=== PATIENT | male | born 1950 | race Caucasian/White ===

== ENCOUNTER 2017-06-16 07:27 | Inpatient (IN) | payer OTHER ==
[~2017-06-16] VITALS: Ht 193 cm; Wt 100.4 kg
[2017-06-16 08:07] LABS: EOSINOPHIL (%) 0.4 % (0-5); HEMATOCRIT 33.4 % (38.0-50.0); IMMATURE GRANULOCYTE (%) 0.5 % (0.0-0.7); IMMATURE GRANULOCYTE COUNT 0.1 K/uL; INSTRUMENT ABS NEUTROPHIL CT 8.6 K/uL; LYMPHOCYTE COUNT 0.9 K/uL (1.0-2.8); MCH 30.6 PG (29.0-34.0); MCHC 33.5 G/DL (30.0-36.0); MCV 91.3 FL (86-99); MEAN PLAT.VOLUME 9.7 uM^3 (9.0-12.4); MONOCYTE (%) 8.9 % (3-12); MONOCYTE COUNT 0.9 K/uL (0-0.8); NEUTROPHIL (%) 81.8 % (45-76); NEUTROPHIL COUNT 8.6 K/uL (1.8-6.4); PLATELET COUNT 152 K/uL (156-360); RBC DIS.WIDTH-SD 42.9 % (39-53); RED BLOOD COUNT 3.66 M/uL (4.00-5.50); WHITE BLOOD COUNT 10.5 K/uL (4.1-10.2)
[2017-06-16 08:13] LABS: INTER. NORMALIZED RATIO 1.2; PROTHROMBIN TIME 13.1 SEC (10.2-12.9)
[2017-06-16 08:15] LABS: PTT 29.9 SEC (25-37)
[2017-06-16 08:20] LABS: CHLORIDE 103 mEq/L (99-109); POTASSIUM 4.2 mEq/L (3.7-5.4); SODIUM 134 mEq/L (136-147)
[2017-06-16 08:22] LABS: GLUCOSE 188 mg/dL (70-99)
[2017-06-16 08:24] LABS: ANION GAP 7 MEQ/L (2-14)
[2017-06-16 08:26] LABS: GFR ESTIMATE (CALCULATED) > 59 mL/min/
[2017-06-16 08:27] LABS: UREA NITROGEN (BUN) 13 mg/dL (9-23)
[2017-06-16 08:37] LABS: TROP-I INTERPRETATION NEGATIVE; TROPONIN-I < 0.01 ng/mL (0.0-0.30)
[2017-06-16] MEDS ORDERED: LABETALOL HCL100 MG PO (12:14)
[2017-06-16] MEDS ORDERED: GLUCOPHAGE1000 MG PO (12:15)
[2017-06-16] MEDS ORDERED: OXYCODONE H5 MG/5 ML PO (12:15)
[2017-06-16] MEDS ORDERED: PAIN RELIE500 MG/15 PO (12:16)
[2017-06-16] MEDS ORDERED: OMEPRAZOLE40 M1 PO (12:17)
[2017-06-16] MEDS ORDERED: VENTOLIN HFA18 GM IH (12:17)
[2017-06-16] MEDS ORDERED: ASPIRIN81 M2 PO (12:18)
[2017-06-16] MEDS ORDERED: ADVIL200 MG PO (12:19)
[2017-06-16 12:39] VITALS: BP 138/68
[2017-06-16 15:25] VITALS: BP 129/63
[2017-06-16 16:40] LABS: POINT-OF-CARE METER ID UU14208750
[2017-06-16 17:12] LABS: TROP-I INTERPRETATION NEGATIVE; TROPONIN-I 0.02 ng/mL (0.0-0.30)
[2017-06-16 19:37] VITALS: BP 121/81
[2017-06-16 22:01] LABS: HEMATOCRIT 28.9 % (38.0-50.0); MCV 91.2 FL (86-99)
[2017-06-16 22:21] LABS: TROP-I INTERPRETATION NEGATIVE; TROPONIN-I 0.02 ng/mL (0.0-0.30)
[2017-06-17 00:40] VITALS: BP 128/70
[2017-06-17 04:40] VITALS: BP 133/65
[2017-06-17 07:19] LABS: ANION GAP 9 MEQ/L (2-14); CHLORIDE 103 MEQ/L (99-109); GFR ESTIMATE (CALCULATED) > 59 mL/min/; GLUCOSE 121 mg/dL (70-99); POTASSIUM 3.9 MEQ/L (3.7-5.4); SAMPLE HEMOLYSIS CHECK 0; SAMPLE ICTERIC CHECK 0; SAMPLE LIPEMIA CHECK 0; SODIUM 137 MEQ/L (136-147); UREA NITROGEN (BUN) 10 mg/dL (9-23)
[2017-06-17 07:40] VITALS: BP 126/72
[2017-06-17 11:30] VITALS: BP 140/70
[2017-06-17 11:55] LABS: POINT-OF-CARE METER ID UU14208750; POINT-OF-CARE USER ID PUTDRM
[2017-06-17 12:53] LABS: HEMATOCRIT 29.1 % (38.0-50.0); MCH 30.3 PG (29.0-34.0); MCV 91.8 FL (86-99); MEAN PLAT.VOLUME 9.7 uM^3 (9.0-12.4); PLATELET COUNT 159 K/uL (156-360); RBC DIS.WIDTH-CV 12.9 % (11.8-14.6); RBC DIS.WIDTH-SD 42.9 % (39-53); RED BLOOD COUNT 3.17 M/uL (4.00-5.50); WHITE BLOOD COUNT 6.4 K/uL (4.1-10.2)
== END 2017-06-17 15:00 | disposition home or self-care (01) | DRG 378 ==
LOC: EME → EDBD 07:27 → 2EAST 11:20 → EDOF 11:20 → ENRESERV 11:24 → 2EASTP 12:32 → 2EAST 14:04
PROVIDERS: Emergency Medicine; Hospitalist; Internal Medicine
DX: K92.1 Melena (principal); R55 Syncope and collapse; K64.9 Unspecified hemorrhoids; E87.1 Hypo-osmolality and hyponatremia; K57.32 Diverticulitis of large intestine without perforation or abscess without bleeding; C14.0 Malignant neoplasm of pharynx, unspecified; E11.9 Type 2 diabetes mellitus without complications; I10 Essential (primary) hypertension; J44.9 Chronic obstructive pulmonary disease, unspecified; G47.30 Sleep apnea, unspecified; F17.200 Nicotine dependence, unspecified, uncomplicated; Z79.82 Long term (current) use of aspirin; Z86.718 Personal history of other venous thrombosis and embolism; Z23 Encounter for immunization
CPT/HCPCS: 70450; 71010; 74177; 80048; 82948; 83735; 84484; 85014; 85018; 85025; 85027; 85610; 85730; 86850; 86900; 86901; 87040; 90686; 93005; 93306; 93880; 99202; 99281; 99285; C9113; J1815; J1956; J2270; J7030; S0030

== ENCOUNTER → 2017-12-12 | Outpatient (CLI) | payer OTHER ==
[~2017-12-12] VITALS: Ht 193 cm; Wt 103.9 kg
[~2017-12-12] MED LIST: ADVIL200 MG PO; ASPIRIN81 M2 PO; BREO ELLIPTA I1 EACH IH; GLUCOPHAGE1000 MG PO; INCRUSE ELLI62.5 MCG IH; LABETALOL HCL100 MG PO; LEVAQUIN750 MG PO; MOTRIN IB200 MG PO; MOTRIN PM CAPL1 EAC1 PO; OMEPRAZOLE40 M1 PO; OXYCODONE H5 MG/5 ML PO; PAIN RELIE500 MG/15 PO; VENTOLIN HFA18 GM IH
[2017-12-12 13:33] LABS: BASOPHIL (%) 0.3 % (0-1); EOSINOPHIL (%) 1.3 % (0-5); EOSINOPHIL COUNT 0.1 K/uL (0-0.3); HEMATOCRIT 38.2 % (38.0-50.0); LYMPHOCYTE (%) 14.1 % (15-42); LYMPHOCYTE COUNT 1.5 K/uL (1.0-2.8); MONOCYTE (%) 7.4 % (3-12); MONOCYTE COUNT 0.8 K/uL (0-0.8); NEUTROPHIL (%) 75.9 % (45-76); NEUTROPHIL COUNT 7.8 K/uL (1.8-6.4); PLATELET COUNT 234 K/uL (156-360); RBC DIS.WIDTH-CV 15.2 % (11.8-14.6); RBC DIS.WIDTH-SD 49.8 % (39-53); RED BLOOD COUNT 4.34 M/uL (4.00-5.50); WHITE BLOOD COUNT 10.3 K/uL (4.1-10.2)
== END | disposition home or self-care (01) ==
LOC: AMB 12:51
PROVIDERS: Internal Medicine Pulmonary Disease
DX: C34.01 Malignant neoplasm of right main bronchus (principal); F17.200 Nicotine dependence, unspecified, uncomplicated; Z79.82 Long term (current) use of aspirin; Z79.84 Long term (current) use of oral hypoglycemic drugs; J44.9 Chronic obstructive pulmonary disease, unspecified; G47.33 Obstructive sleep apnea (adult) (pediatric); E11.9 Type 2 diabetes mellitus without complications; Z86.718 Personal history of other venous thrombosis and embolism; K21.9 Gastro-esophageal reflux disease without esophagitis; I10 Essential (primary) hypertension; Z85.01 Personal history of malignant neoplasm of esophagus; Z92.3 Personal history of irradiation
CPT/HCPCS: 82948; 85025; 85610; 88108; 88173; 88305; 88341 TC; 88342 TC; J0131; J1170

== ENCOUNTER 2017-12-22 22:49 | Inpatient (IN) | payer OTHER ==
[~2017-12-22] VITALS: Ht 193 cm; Wt 108.0 kg
[2017-12-22 23:23] LABS: BASE EXCESS 2.3 mEq/L (-3 to +3); BICARBONATE 26.5 mEq/L (22-26); CARBOXY HGB 2.1 % (0-5); COMMENTS - BLOOD GASES C+A+; DEVICE NEBULIZER TX; O2 FLOW 6 L/MIN; PCO2 39 mm Hg (35-45); PO2 76 mm Hg (80-100); SITE RR; pH 7.44 (7.35-7.45)
[2017-12-22 23:25] LABS: BASOPHIL (%) 0.3 % (0-1); EOSINOPHIL (%) 1.2 % (0-5); EOSINOPHIL COUNT 0.1 K/uL (0-0.3); HEMATOCRIT 39.8 % (38.0-50.0); HEMOGLOBIN 13.4 G/DL (12.5-16.6); IMMATURE GRANULOCYTE (%) 0.6 % (0.0-0.7); LYMPHOCYTE (%) 7.9 % (15-42); LYMPHOCYTE COUNT 0.9 K/uL (1.0-2.8); MCH 29.5 PG (29.0-34.0); MCHC 33.7 G/DL (30.0-36.0); MCV 87.7 FL (86-99); MONOCYTE (%) 7.1 % (3-12); MONOCYTE COUNT 0.8 K/uL (0-0.8); NEUTROPHIL (%) 82.9 % (45-76); NEUTROPHIL COUNT 8.9 K/uL (1.8-6.4); PLATELET COUNT 188 K/uL (156-360); RBC DIS.WIDTH-CV 14.8 % (11.8-14.6); RBC DIS.WIDTH-SD 47.9 % (39-53); RED BLOOD COUNT 4.54 M/uL (4.00-5.50); WHITE BLOOD COUNT 10.7 K/uL (4.1-10.2)
[2017-12-22 23:32] LABS: INTER. NORMALIZED RATIO 1.1
[2017-12-22 23:34] LABS: CHLORIDE 103 mEq/L (99-109); POTASSIUM 4.3 mEq/L (3.7-5.4); PTT 33.8 SEC (25-37); SODIUM 144 mEq/L (136-147)
[2017-12-22 23:35] LABS: MAGNESIUM 1.9 mg/dL (1.3-2.7)
[2017-12-22 23:36] LABS: GLUCOSE 172 mg/dL (70-99)
[2017-12-22 23:40] LABS: CREATININE 0.9 mg/dL (0.6-1.3); GFR ESTIMATE (CALCULATED) > 59 mL/min/ (58.99-99999); UREA NITROGEN (BUN) 19 mg/dL (9-23)
[2017-12-22 23:46] LABS: TROP-I INTERPRETATION NEGATIVE; TROPONIN-I 0.18 ng/mL (0.0-0.30)
[2017-12-23 05:11] VITALS: BP 151/76
[2017-12-23 06:16] LABS: HEMATOCRIT 40.9 % (38.0-50.0); HEMOGLOBIN 13.5 G/DL (12.5-16.6); MCH 29.6 PG (29.0-34.0); MCV 89.7 FL (86-99); PLATELET COUNT 202 K/uL (156-360); RBC DIS.WIDTH-CV 15.2 % (11.8-14.6); RED BLOOD COUNT 4.56 M/uL (4.00-5.50); WHITE BLOOD COUNT 10.9 K/uL (4.1-10.2)
[2017-12-23 06:26] LABS: TROP-I INTERPRETATION POSITIVE; TROPONIN-I 0.82 ng/mL (0.0-0.30)
[2017-12-23 07:07] LABS: ALBUMIN 4.3 G/DL (3.2-4.8); ALKALINE PHOSPHATASE 63 IU/L (3-129); ALT (GPT) 11 IU/L (3-49); AST (GOT) 14 IU/L (2-34); CHLORIDE 105 MEQ/L (99-109); CREATININE 0.9 MG/DL (0.6-1.3); GFR ESTIMATE (CALCULATED) > 59 mL/min/ (58.99-99999); POTASSIUM 4.2 MEQ/L (3.7-5.4); SODIUM 141 MEQ/L (136-147); TOTAL BILIRUBIN 0.6 MG/DL (0.0-1.0); TOTAL PROTEIN 6.6 G/DL (6.4-8.3); UREA NITROGEN (BUN) 18 mg/dL (9-23)
[2017-12-23 07:10] LABS: GLUCOSE 107 mg/dL (70-99)
[2017-12-23 08:38] VITALS: BP 126/69
[2017-12-23 08:54] LABS: INTER. NORMALIZED RATIO 1.2
[2017-12-23 09:34] LABS: PTT 218.6 SEC (25-37)
[2017-12-23 11:17] LABS: HEMOGLOBIN A1c (GLYCOHEMOGLOB) 6.5 % (Below 5.7)
[2017-12-23 12:21] VITALS: BP 175/94
[2017-12-23 13:26] LABS: TROP-I INTERPRETATION INDETERMINATE; TROPONIN-I 0.55 ng/mL (0.0-0.30)
[2017-12-23] MEDS ORDERED: OMEPRAZOLE40 M1 PO (13:55)
[2017-12-23] MEDS ORDERED: LIDOCAINE20 MG/1 M5 PO (13:56)
[2017-12-23 16:20] VITALS: BP 152/81
[2017-12-23 19:41] VITALS: BP 161/83
[2017-12-24] VITALS (19 sets, daily range): BP systolic 137–181; BP diastolic 67–114
[2017-12-24 02:14] LABS: HEMOGLOBIN 13.7 G/DL (12.5-16.6); MCH 29.9 PG (29.0-34.0); MCHC 34.3 G/DL (30.0-36.0); MCV 87.3 FL (86-99); PLATELET COUNT 178 K/uL (156-360); RBC DIS.WIDTH-CV 14.8 % (11.8-14.6); RBC DIS.WIDTH-SD 47.5 % (39-53); RED BLOOD COUNT 4.58 M/uL (4.00-5.50); WHITE BLOOD COUNT 9.7 K/uL (4.1-10.2)
[2017-12-24 07:20] LABS: BASE EXCESS 0.5 mEq/L (-3 to +3); BICARBONATE 24.6 mEq/L (22-26); CARBOXY HGB 2.1 % (0-5); METHEMOGLOBIN 1.6 % (0-1.5); PCO2 37 mm Hg (35-45); pH 7.43 (7.35-7.45)
[2017-12-24 07:21] LABS: COMMENTS - BLOOD GASES A+C+; DEVICE NRB; FI02 100 %; O2 FLOW 15 L/MIN; PO2 59 mm Hg (80-100); SITE LR
[2017-12-24 08:55] LABS: TROP-I INTERPRETATION INDETERMINATE; TROPONIN-I 0.31 ng/mL (0.0-0.30)
[2017-12-25] VITALS (10 sets, daily range): BP systolic 129–172; BP diastolic 52–92
[2017-12-26 00:53] VITALS: BP 132/78
[2017-12-26 03:52] VITALS: BP 149/78
[2017-12-26 06:34] LABS: HEMATOCRIT 41.9 % (38.0-50.0); HEMOGLOBIN 13.9 G/DL (12.5-16.6); MCH 29.1 PG (29.0-34.0); MCHC 33.2 G/DL (30.0-36.0); MCV 87.8 FL (86-99); PLATELET COUNT 194 K/uL (156-360); RBC DIS.WIDTH-CV 14.4 % (11.8-14.6); RBC DIS.WIDTH-SD 46.1 % (39-53); RED BLOOD COUNT 4.77 M/uL (4.00-5.50); WHITE BLOOD COUNT 9.9 K/uL (4.1-10.2)
[2017-12-26 07:55] VITALS: BP 175/77
[2017-12-26 12:09] VITALS: BP 146/82
[2017-12-26 15:12] VITALS: BP 146/80
[2017-12-26 21:35] VITALS: BP 176/81
[2017-12-27 01:15] VITALS: BP 143/69
[2017-12-27 04:45] VITALS: BP 148/74
[2017-12-27 12:00] VITALS: BP 150/84
[2017-12-27 16:58] VITALS: BP 178/83
[2017-12-27 19:26] VITALS: BP 175/77
[2017-12-28] VITALS (7 sets, daily range): BP systolic 130–171; BP diastolic 64–89
[2017-12-28 06:29] LABS: CHLORIDE 100 MEQ/L (99-109); CREATININE 0.9 MG/DL (0.6-1.3); GFR ESTIMATE (CALCULATED) > 59 mL/min/ (58.99-99999); GLUCOSE 191 mg/dL (70-99); SODIUM 135 MEQ/L (136-147); UREA NITROGEN (BUN) 26 mg/dL (9-23)
[2017-12-29 03:00] VITALS: BP 141/72
[2017-12-29 05:50] LABS: HEMATOCRIT 41.2 % (38.0-50.0); HEMOGLOBIN 13.7 G/DL (12.5-16.6); MCH 28.8 PG (29.0-34.0); MCHC 33.3 G/DL (30.0-36.0); MCV 86.7 FL (86-99); PLATELET COUNT 252 K/uL (156-360); RBC DIS.WIDTH-SD 44.6 % (39-53); RED BLOOD COUNT 4.75 M/uL (4.00-5.50); WHITE BLOOD COUNT 11.5 K/uL (4.1-10.2)
[2017-12-29 08:05] VITALS: BP 146/70
[2017-12-29 11:38] VITALS: BP 124/61
[2017-12-29 16:07] VITALS: BP 131/70
[2017-12-29 20:00] VITALS: BP 143/71
[2017-12-30 00:30] VITALS: BP 133/63
[2017-12-30 06:11] LABS: BASOPHIL (%) 0.1 % (0-1); EOSINOPHIL (%) 0 % (0-5); HEMATOCRIT 38.6 % (38.0-50.0); HEMOGLOBIN 12.8 G/DL (12.5-16.6); IMMATURE GRANULOCYTE (%) 0.7 % (0.0-0.7); LYMPHOCYTE (%) 6.2 % (15-42); LYMPHOCYTE COUNT 0.7 K/uL (1.0-2.8); MCHC 33.2 G/DL (30.0-36.0); MCV 87.5 FL (86-99); MONOCYTE (%) 7.3 % (3-12); MONOCYTE COUNT 0.8 K/uL (0-0.8); NEUTROPHIL (%) 85.7 % (45-76); NEUTROPHIL COUNT 9.5 K/uL (1.8-6.4); PLATELET COUNT 234 K/uL (156-360); RBC DIS.WIDTH-CV 14.1 % (11.8-14.6); RBC DIS.WIDTH-SD 45.1 % (39-53); RED BLOOD COUNT 4.41 M/uL (4.00-5.50)
[2017-12-30 06:12] VITALS: BP 133/64
[2017-12-30 06:33] LABS: ALKALINE PHOSPHATASE 60 IU/L (3-129); ALT (GPT) 29 IU/L (3-49); AST (GOT) 17 IU/L (2-34); CHLORIDE 102 MEQ/L (99-109); CREATININE 0.9 MG/DL (0.6-1.3); GFR ESTIMATE (CALCULATED) > 59 mL/min/ (58.99-99999); GLUCOSE 221 mg/dL (70-99); POTASSIUM 4.9 MEQ/L (3.7-5.4); SODIUM 135 MEQ/L (136-147); TOTAL BILIRUBIN 0.7 MG/DL (0.0-1.0); TOTAL PROTEIN 6.2 G/DL (6.4-8.3); UREA NITROGEN (BUN) 34 mg/dL (9-23)
[2017-12-30 09:00] VITALS: BP 192/81
[2017-12-30] MEDS ORDERED: LOVENOX100 MG/1 M SC (10:37)
[2017-12-30 12:00] VITALS: BP 140/65
[2017-12-30 18:15] VITALS: BP 139/64
[2017-12-30 20:44] VITALS: BP 151/72
[2017-12-31 01:27] VITALS: BP 139/63
[2017-12-31 04:32] VITALS: BP 129/74
[2017-12-31 07:01] LABS: HEMATOCRIT 40.5 % (38.0-50.0); HEMOGLOBIN 13.4 G/DL (12.5-16.6); MCHC 33.1 G/DL (30.0-36.0); MCV 87.7 FL (86-99); PLATELET COUNT 215 K/uL (156-360); RBC DIS.WIDTH-CV 14.2 % (11.8-14.6); RBC DIS.WIDTH-SD 45.7 % (39-53); RED BLOOD COUNT 4.62 M/uL (4.00-5.50); WHITE BLOOD COUNT 9.1 K/uL (4.1-10.2)
[2017-12-31 07:19] VITALS: BP 136/72
[2017-12-31 11:14] VITALS: BP 148/70
[2017-12-31] MEDS ORDERED: DUONEB 2.5-0.5 M3 ML AEROSOL (12:16)
[2017-12-31 16:20] VITALS: BP 143/73
[2017-12-31 20:40] VITALS: BP 138/78
[2018-01-01 00:05] VITALS: BP 128/56
[2018-01-01 05:01] VITALS: BP 130/65
[2018-01-01 12:00] VITALS: BP 148/71
[2018-01-01] MEDS ORDERED: DUONEB 2.5-0.5 M3 ML AEROSOL (13:25)
== END 2018-01-01 15:40 | disposition home health service (06) | DRG 299 ==
LOC: EME → EDBD 22:49 → EME 22:49 → 5EAST 12-23 02:57 → EDOF 12-23 02:57 → 4WEST 12-23 02:57 → ENRESERV 12-23 02:58 → 5EAST 12-23 04:29 → ENRESERV 12-24 07:09 → 5EAST 12-24 07:39 → ENRESERV 12-24 07:39 → 4WEST 12-24 08:32 → ENRESERV 12-25 14:49 → CANRESERV 12-25 14:49 → ENRESERV 12-25 15:06 → 4EAST 12-25 16:17
PROVIDERS: Emergency Medicine; Hospitalist; Internal Medicine
DX: I82.412 Acute embolism and thrombosis of left femoral vein (principal); J96.01 Acute respiratory failure with hypoxia; I26.92 Saddle embolus of pulmonary artery without acute cor pulmonale; J44.0 Chronic obstructive pulmonary disease with (acute) lower respiratory infection; J18.9 Pneumonia, unspecified organism; E11.65 Type 2 diabetes mellitus with hyperglycemia; F17.200 Nicotine dependence, unspecified, uncomplicated; G47.33 Obstructive sleep apnea (adult) (pediatric); I10 Essential (primary) hypertension; Z85.819 Personal history of malignant neoplasm of unspecified site of lip, oral cavity, and pharynx; Z85.21 Personal history of malignant neoplasm of larynx; R13.10 Dysphagia, unspecified; C34.91 Malignant neoplasm of unspecified part of right bronchus or lung; J44.1 Chronic obstructive pulmonary disease with (acute) exacerbation; K21.9 Gastro-esophageal reflux disease without esophagitis; Z86.718 Personal history of other venous thrombosis and embolism; Z92.3 Personal history of irradiation; Z79.4 Long term (current) use of insulin; R74.8 Abnormal levels of other serum enzymes
CPT/HCPCS: 36600; 70490; 71045; 71250; 71275; 74230; 80048; 80053; 82803; 82948; 83036; 83735; 83880; 84484; 85025; 85027; 85610; 85730; 87449; 87641; 92526 GN; 92610 GN; 92611 GN; 93005; 93306; 93970; 94010; 94640; 94640 76; 94660; 94760; 94799; 97530 GO; 99202; 99281; 99285; J0295; J0456; J1650; J1815; J2270; J2405; J2920; J7050; J7512

== ENCOUNTER 2018-01-25 17:16 | Inpatient (IN) | payer OTHER ==
[~2018-01-25] VITALS: Ht 193 cm; Wt 99.6 kg
[~2018-01-25 17:16] MED LIST changes: +DUONEB 2.5-0.5 M3 ML AEROSOL; +LIDOCAINE20 MG/1 M5 PO; +LOVENOX100 MG/1 M SC
[2018-01-25 18:10] LABS: BASOPHIL (%) 0.2 % (0-1); EOSINOPHIL (%) 0.1 % (0-5); IMMATURE GRANULOCYTE (%) 0.6 % (0.0-0.7); LYMPHOCYTE (%) 3.8 % (15-42); LYMPHOCYTE COUNT 0.5 K/uL (1.0-2.8); MCH 29.4 PG (29.0-34.0); MCHC 33.3 G/DL (30.0-36.0); MCV 88.2 FL (86-99); MONOCYTE (%) 2.1 % (3-12); MONOCYTE COUNT 0.3 K/uL (0-0.8); NEUTROPHIL (%) 93.2 % (45-76); NEUTROPHIL COUNT 11.2 K/uL (1.8-6.4); PLATELET COUNT 398 K/uL (156-360); RBC DIS.WIDTH-CV 13.7 % (11.8-14.6); RBC DIS.WIDTH-SD 44.4 % (39-53); RED BLOOD COUNT 4.08 M/uL (4.00-5.50)
[2018-01-25 18:15] LABS: INTER. NORMALIZED RATIO 1.5
[2018-01-25 18:19] LABS: ALBUMIN 3.8 g/dL (3.2-4.8)
[2018-01-25 18:20] LABS: CHLORIDE 101 mEq/L (99-109); POTASSIUM 4.4 mEq/L (3.7-5.4); SODIUM 135 mEq/L (136-147)
[2018-01-25 18:22] LABS: GLUCOSE 146 mg/dL (70-99); TOTAL PROTEIN 6.6 g/dL (6.4-8.3)
[2018-01-25 18:24] LABS: TOTAL BILIRUBIN 0.9 mg/dL (0.0-1.0)
[2018-01-25 18:25] LABS: ALKALINE PHOSPHATASE 109 IU/L (3-129)
[2018-01-25 18:26] LABS: CREATININE 0.8 mg/dL (0.6-1.3); GFR ESTIMATE (CALCULATED) > 59 mL/min/ (58.99-99999)
[2018-01-25 18:27] LABS: AST (GOT) 16 IU/L (2-34); UREA NITROGEN (BUN) 17 mg/dL (9-23)
[2018-01-25 18:28] LABS: ALT (GPT) 24 IU/L (3-49)
[2018-01-25] MEDS ORDERED: MAGIC MOUTHWASH PO (19:56)
[2018-01-25] MEDS ORDERED: ZOFRAN4 MG PO (19:57)
[2018-01-25] MEDS ORDERED: CARBOPLATIN150 MG IV (19:57)
[2018-01-25] MEDS ORDERED: PROCHLORPERAZIN10 MG PO (19:57)
[2018-01-25] MEDS ORDERED: PACLITAXEL6 MG/1 ML IV (19:57)
[2018-01-25 21:31] LABS: APPEARANCE CLEAR ((CLEAR)); BILIRUBIN NEGATIVE; BLOOD NEGATIVE; COLOR YELLOW ((YELLOW)); GLUCOSE (STRIP) NEGATIVE; KETONES NEGATIVE; LEUKOCYTES NEGATIVE; NITRITE NEGATIVE; PROTEIN (STRIP) NEGATIVE; SPECIFIC GRAVITY 1.017 (1.000-1.030); UCUL ADDED? NO; UROBILINOGEN 0.2 MG/DL (0.2-1.0)
[2018-01-25 22:28] VITALS: BP 132/65
[2018-01-26 05:41] LABS: HEMATOCRIT 34.1 % (38.0-50.0); HEMOGLOBIN 11.3 G/DL (12.5-16.6); MCH 29.4 PG (29.0-34.0); MCHC 33.1 G/DL (30.0-36.0); MCV 88.6 FL (86-99); PLATELET COUNT 361 K/uL (156-360); RBC DIS.WIDTH-CV 13.8 % (11.8-14.6); RED BLOOD COUNT 3.85 M/uL (4.00-5.50); WHITE BLOOD COUNT 10.3 K/uL (4.1-10.2)
[2018-01-26 06:08] LABS: ALKALINE PHOSPHATASE 83 IU/L (3-129); ALT (GPT) 18 IU/L (3-49); AST (GOT) 14 IU/L (2-34); CHLORIDE 104 MEQ/L (99-109); CREATININE 0.8 MG/DL (0.6-1.3); GFR ESTIMATE (CALCULATED) > 59 mL/min/ (58.99-99999); GLUCOSE 131 mg/dL (70-99); POTASSIUM 4.2 MEQ/L (3.7-5.4); SODIUM 138 MEQ/L (136-147); TOTAL BILIRUBIN 0.6 MG/DL (0.0-1.0); TOTAL PROTEIN 5.4 G/DL (6.4-8.3); UREA NITROGEN (BUN) 13 mg/dL (9-23)
[2018-01-26 07:42] VITALS: BP 131/60
[2018-01-26 07:49] VITALS: BP 156/63
[2018-01-26 15:01] VITALS: BP 114/60
[2018-01-27 00:41] VITALS: BP 100/55
[2018-01-27 06:10] LABS: HEMATOCRIT 32.9 % (38.0-50.0); MCH 29.7 PG (29.0-34.0); MCHC 33.4 G/DL (30.0-36.0); MCV 88.9 FL (86-99); PLATELET COUNT 368 K/uL (156-360); RBC DIS.WIDTH-CV 13.7 % (11.8-14.6); RBC DIS.WIDTH-SD 44.5 % (39-53); WHITE BLOOD COUNT 9.3 K/uL (4.1-10.2)
[2018-01-27 06:32] LABS: CHLORIDE 103 MEQ/L (99-109); CREATININE 0.7 MG/DL (0.6-1.3); GFR ESTIMATE (CALCULATED) > 59 mL/min/ (58.99-99999); GLUCOSE 177 mg/dL (70-99); SODIUM 134 MEQ/L (136-147); UREA NITROGEN (BUN) 12 mg/dL (9-23)
[2018-01-27 08:21] VITALS: BP 120/71
[2018-01-27 15:00] VITALS: BP 124/58
[2018-01-27 22:01] VITALS: BP 129/72
[2018-01-28] VITALS: BP 107/64
[2018-01-28 07:30] VITALS: BP 161/79
[2018-01-28 16:12] VITALS: BP 122/69
[2018-01-28 23:38] VITALS: BP 113/67
[2018-01-29] VITALS (8 sets, daily range): BP systolic 117–141; BP diastolic 56–70
[2018-01-29 06:57] LABS: CHLORIDE 101 MEQ/L (99-109); CREATININE 0.8 MG/DL (0.6-1.3); GFR ESTIMATE (CALCULATED) > 59 mL/min/ (58.99-99999); GLUCOSE 157 mg/dL (70-99); POTASSIUM 4.4 MEQ/L (3.7-5.4); PREALBUMIN 7.2 mg/dL (10-40); SODIUM 134 MEQ/L (136-147); UREA NITROGEN (BUN) 12 mg/dL (9-23)
[2018-01-30 00:08] VITALS: BP 137/68
[2018-01-30 06:27] LABS: HEMATOCRIT 32.8 % (38.0-50.0); HEMOGLOBIN 10.7 G/DL (12.5-16.6); MCH 28.6 PG (29.0-34.0); MCHC 32.6 G/DL (30.0-36.0); MCV 87.7 FL (86-99); PLATELET COUNT 393 K/uL (156-360); RBC DIS.WIDTH-CV 13.7 % (11.8-14.6); RBC DIS.WIDTH-SD 43.8 % (39-53); RED BLOOD COUNT 3.74 M/uL (4.00-5.50); WHITE BLOOD COUNT 5.4 K/uL (4.1-10.2)
[2018-01-30 06:56] LABS: CHLORIDE 104 MEQ/L (99-109); CREATININE 0.7 MG/DL (0.6-1.3); GFR ESTIMATE (CALCULATED) > 59 mL/min/ (58.99-99999); POTASSIUM 4.8 MEQ/L (3.7-5.4); SODIUM 135 MEQ/L (136-147); UREA NITROGEN (BUN) 14 mg/dL (9-23)
[2018-01-30 06:57] LABS: GLUCOSE 247 mg/dL (70-99)
[2018-01-30 07:00] VITALS: BP 137/73
[2018-01-30 13:50] VITALS: BP 141/67
[2018-01-31 00:23] VITALS: BP 132/67; BP 153/80
[2018-01-31 06:38] LABS: CHLORIDE 103 MEQ/L (99-109); CREATININE 0.6 MG/DL (0.6-1.3); GFR ESTIMATE (CALCULATED) > 59 mL/min/ (58.99-99999); GLUCOSE 200 mg/dL (70-99); POTASSIUM 4.7 MEQ/L (3.7-5.4); SODIUM 136 MEQ/L (136-147); UREA NITROGEN (BUN) 14 mg/dL (9-23)
[2018-01-31 07:00] VITALS: BP 158/80
[2018-01-31 16:05] VITALS: BP 162/78
[2018-02-01 00:53] VITALS: BP 122/64
[2018-02-01 06:55] VITALS: BP 137/66
[2018-02-01 15:35] VITALS: BP 128/64
[2018-02-02 00:02] VITALS: BP 139/69
[2018-02-02 05:52] LABS: HEMATOCRIT 32.4 % (38.0-50.0); HEMOGLOBIN 10.6 G/DL (12.5-16.6); MCH 29.1 PG (29.0-34.0); MCHC 32.7 G/DL (30.0-36.0); PLATELET COUNT 372 K/uL (156-360); RBC DIS.WIDTH-CV 13.8 % (11.8-14.6); RBC DIS.WIDTH-SD 45.1 % (39-53); RED BLOOD COUNT 3.64 M/uL (4.00-5.50); WHITE BLOOD COUNT 5.6 K/uL (4.1-10.2)
[2018-02-02 06:23] LABS: CHLORIDE 102 MEQ/L (99-109); CREATININE 0.7 MG/DL (0.6-1.3); GFR ESTIMATE (CALCULATED) > 59 mL/min/ (58.99-99999); GLUCOSE 143 mg/dL (70-99); POTASSIUM 4.3 MEQ/L (3.7-5.4); SODIUM 138 MEQ/L (136-147); UREA NITROGEN (BUN) 10 mg/dL (9-23)
[2018-02-02 07:33] VITALS: BP 130/72
[2018-02-02 11:29] VITALS: BP 129/59
[2018-02-02 16:03] VITALS: BP 131/67
[2018-02-02 22:53] VITALS: BP 125/67
[2018-02-03 06:36] LABS: BASOPHIL (%) 0.3 % (0-1); EOSINOPHIL (%) 0.8 % (0-5); HEMATOCRIT 33.5 % (38.0-50.0); HEMOGLOBIN 10.7 G/DL (12.5-16.6); IMMATURE GRANULOCYTE (%) 1.3 % (0.0-0.7); LYMPHOCYTE COUNT 0.4 K/uL (1.0-2.8); MCH 28.6 PG (29.0-34.0); MCHC 31.9 G/DL (30.0-36.0); MCV 89.6 FL (86-99); MONOCYTE (%) 3.4 % (3-12); MONOCYTE COUNT 0.1 K/uL (0-0.8); NEUTROPHIL (%) 85.2 % (45-76); NEUTROPHIL COUNT 3.3 K/uL (1.8-6.4); RBC DIS.WIDTH-CV 13.7 % (11.8-14.6); RBC DIS.WIDTH-SD 44.5 % (39-53); RED BLOOD COUNT 3.74 M/uL (4.00-5.50); WHITE BLOOD COUNT 3.9 K/uL (4.1-10.2)
[2018-02-03 06:48] VITALS: BP 141/72
[2018-02-03 07:15] LABS: ALKALINE PHOSPHATASE 102 IU/L (3-129); ALT (GPT) 19 IU/L (3-49); AST (GOT) 11 IU/L (2-34); CHLORIDE 100 MEQ/L (99-109); CREATININE 0.8 MG/DL (0.6-1.3); GFR ESTIMATE (CALCULATED) > 59 mL/min/ (58.99-99999); GLUCOSE 149 mg/dL (70-99); POTASSIUM 4.7 MEQ/L (3.7-5.4); SODIUM 136 MEQ/L (136-147); TOTAL BILIRUBIN 0.5 MG/DL (0.0-1.0); TOTAL PROTEIN 5.4 G/DL (6.4-8.3); UREA NITROGEN (BUN) 16 mg/dL (9-23)
[2018-02-03 10:24] LABS: PLAT.SUFFICIENCY ADEQUATE; PLATELET COUNT 306 K/uL (156-360)
[2018-02-03 15:35] VITALS: BP 113/71
[2018-02-04 00:41] VITALS: BP 141/81
[2018-02-04 06:36] LABS: BASOPHIL (%) 0.9 % (0-1); EOSINOPHIL (%) 0.9 % (0-5); HEMATOCRIT 35.1 % (38.0-50.0); HEMOGLOBIN 11.2 G/DL (12.5-16.6); IMMATURE GRANULOCYTE (%) 1.1 % (0.0-0.7); LYMPHOCYTE COUNT 0.2 K/uL (1.0-2.8); MCH 28.6 PG (29.0-34.0); MCHC 31.9 G/DL (30.0-36.0); MCV 89.5 FL (86-99); MONOCYTE (%) 6.3 % (3-12); MONOCYTE COUNT 0.2 K/uL (0-0.8); NEUTROPHIL (%) 84.8 % (45-76); RBC DIS.WIDTH-CV 13.6 % (11.8-14.6); RBC DIS.WIDTH-SD 44.7 % (39-53); RED BLOOD COUNT 3.92 M/uL (4.00-5.50); WHITE BLOOD COUNT 3.5 K/uL (4.1-10.2)
[2018-02-04 06:43] LABS: PLATELET COUNT 401 K/uL (156-360)
[2018-02-04 07:00] VITALS: BP 136/63
[2018-02-04 07:00] LABS: CHLORIDE 98 MEQ/L (99-109); CREATININE 0.7 MG/DL (0.6-1.3); GFR ESTIMATE (CALCULATED) > 59 mL/min/ (58.99-99999); GLUCOSE 151 mg/dL (70-99); POTASSIUM 5.1 MEQ/L (3.7-5.4); SODIUM 136 MEQ/L (136-147); UREA NITROGEN (BUN) 18 mg/dL (9-23)
[2018-02-04 15:40] VITALS: BP 131/76
[2018-02-05 00:16] VITALS: BP 104/59
[2018-02-05 07:35] VITALS: BP 122/65
[2018-02-05 15:55] VITALS: BP 113/67
[2018-02-06 00:43] VITALS: BP 111/70
[2018-02-06 08:00] VITALS: BP 116/57
[2018-02-06] MEDS ORDERED: AMOX TR-K CLV1 EAC4 PO (12:07)
[2018-02-06] MEDS ORDERED: OXYCODONE H5 MG/5 ML PO (12:07)
[2018-02-06 15:30] VITALS: BP 148/70
== END 2018-02-06 19:05 | disposition home or self-care (01) | DRG 871 ==
LOC: EME 17:16 → EDOF 20:15 → 5EAST 20:15 → ENRESERV 20:16 → 5EAST 21:46
PROVIDERS: Family Medicine; Hospitalist; Internal Medicine; Physician Assistant
PROC: 5A09357 Assistance with Respiratory Ventilation, Less than 24 Consecutive Hours, Continuous Positive Airway Pressure (ICD-10-PCS; principal; 2018-01-25)
DX: A41.9 Sepsis, unspecified organism (principal); J96.01 Acute respiratory failure with hypoxia; J18.9 Pneumonia, unspecified organism; C34.91 Malignant neoplasm of unspecified part of right bronchus or lung; C32.9 Malignant neoplasm of larynx, unspecified; R13.10 Dysphagia, unspecified; K21.9 Gastro-esophageal reflux disease without esophagitis; C05.1 Malignant neoplasm of soft palate; I10 Essential (primary) hypertension; E11.65 Type 2 diabetes mellitus with hyperglycemia; J43.9 Emphysema, unspecified; Y95 Nosocomial condition; M54.2 Cervicalgia; G47.33 Obstructive sleep apnea (adult) (pediatric); Z87.891 Personal history of nicotine dependence; Z79.01 Long term (current) use of anticoagulants; Z85.818 Personal history of malignant neoplasm of other sites of lip, oral cavity, and pharynx; Z86.718 Personal history of other venous thrombosis and embolism; Z91.013 Allergy to seafood; R65.20 Severe sepsis without septic shock; R68.84 Jaw pain; Z92.21 Personal history of antineoplastic chemotherapy; Z92.3 Personal history of irradiation; Z86.711 Personal history of pulmonary embolism
CPT/HCPCS: 71045; 71046; 71275; 74230; 77300; 77301; 77336; 77338 XS; 77385; 77386; 80048; 80053; 81003; 82948; 83605; 83735; 83880; 84100; 84134; 85025; 85027; 85610; 87040; 87070; 87106; 87205; 87449; 92610 GN; 92611 GN; 94640; 94640 76; 94660; 94760; 94799; 96360; 96361; 96375; 96413; 96415; 96417; 99202; 99281; 99285; G0463 25; J0456; J1100; J1200; J1626; J1650; J1815; J1940; J2543; J7030; J7050; J7512; J9045; J9267; S0028

== ENCOUNTER 2018-04-12 12:18 | Inpatient (IN) | payer OTHER ==
[~2018-04-12] VITALS: Ht 195.6 cm; Wt 78.2 kg
[~2018-04-12 12:18] MED LIST changes: +AMOX TR-K CLV1 EAC4 PO; +CARBOPLATIN150 MG IV; +DIFLUCAN150 MG PO; +MAGIC MOUTHWASH PO; +PACLITAXEL6 MG/1 ML IV; +PROCHLORPERAZIN10 MG PO; +REMERON15 M2 PO; +XARELTO20 MG PO; +ZOFRAN8 MG PO
[2018-04-12 13:17] LABS: BASOPHIL (%) 0.2 % (0-1); EOSINOPHIL (%) 0.3 % (0-5); HEMATOCRIT 30.1 % (38.0-50.0); HEMOGLOBIN 9.8 G/DL (12.5-16.6); IMMATURE GRANULOCYTE (%) 0.6 % (0.0-0.7); INTER. NORMALIZED RATIO 1.9; LYMPHOCYTE (%) 2.8 % (15-42); LYMPHOCYTE COUNT 0.3 K/uL (1.0-2.8); MCH 28.6 PG (29.0-34.0); MCHC 32.6 G/DL (30.0-36.0); MONOCYTE (%) 8.1 % (3-12); MONOCYTE COUNT 0.9 K/uL (0-0.8); NEUTROPHIL COUNT 9.9 K/uL (1.8-6.4); PLATELET COUNT 440 K/uL (156-360); RBC DIS.WIDTH-CV 19.1 % (11.8-14.6); RBC DIS.WIDTH-SD 61.1 % (39-53); RED BLOOD COUNT 3.43 M/uL (4.00-5.50); WHITE BLOOD COUNT 11.2 K/uL (4.1-10.2)
[2018-04-12 13:18] LABS: CHLORIDE 101 mEq/L (99-109); POTASSIUM 4.6 mEq/L (3.7-5.4); SODIUM 136 mEq/L (136-147)
[2018-04-12 13:19] LABS: GLUCOSE 133 mg/dL (70-99)
[2018-04-12 13:23] LABS: CREATININE 0.8 mg/dL (0.6-1.3); GFR ESTIMATE (CALCULATED) > 59 mL/min/ (58.99-99999)
[2018-04-12 13:24] LABS: UREA NITROGEN (BUN) 15 mg/dL (9-23)
[2018-04-12 13:38] LABS: MCV 87.8 FL (86-99)
[2018-04-12] MEDS ORDERED: OXYCODONE H5 MG/5 ML PO (15:14)
[2018-04-12] MEDS ORDERED: CHILDREN'S160 MG/20 PO (15:24)
[2018-04-12] MEDS ORDERED: MUCINEX600 MG PO (15:25)
[2018-04-12] MEDS ORDERED: OXYGEN MC (15:25)
[2018-04-12] MEDS ORDERED: COLACE100 MG PO (15:26)
[2018-04-12] MEDS ORDERED: MILK OF MAGN PO (15:27)
[2018-04-12 15:52] VITALS: BP 143/69
[2018-04-12 16:55] LABS: HEMATOCRIT 26.9 % (38.0-50.0); HEMOGLOBIN 8.6 G/DL (12.5-16.6); MCV 88.2 FL (86-99)
[2018-04-12 20:40] VITALS: BP 130/80
[2018-04-12] MEDS ORDERED: FENTANYL1 EAC4 TD (22:09)
[2018-04-12] MEDS ORDERED: SODIUM CHLORIDE1 G1 PO (22:09)
[2018-04-12] MEDS ORDERED: LABETALOL HCL100 MG PO (22:10)
[2018-04-12 23:40] LABS: HEMATOCRIT 25.9 % (38.0-50.0); HEMOGLOBIN 8.5 G/DL (12.5-16.6); MCV 87.8 FL (86-99)
[2018-04-13 04:28] VITALS: BP 120/62
[2018-04-13 05:22] LABS: APPEARANCE CLEAR ((CLEAR)); BILIRUBIN NEGATIVE; BLOOD NEGATIVE; COLOR STRAW ((YELLOW)); GLUCOSE (STRIP) NEGATIVE; KETONES 5; LEUKOCYTES NEGATIVE; NITRITE NEGATIVE; PROTEIN (STRIP) NEGATIVE; SPECIFIC GRAVITY 1.008 (1.000-1.030); UROBILINOGEN 0.2 MG/DL (0.2-1.0)
[2018-04-13 05:44] LABS: HEMATOCRIT 28.8 % (38.0-50.0); HEMOGLOBIN 9.2 G/DL (12.5-16.6); MCH 28.4 PG (29.0-34.0); MCHC 31.9 G/DL (30.0-36.0); MCV 88.9 FL (86-99); PLATELET COUNT 412 K/uL (156-360); RBC DIS.WIDTH-CV 18.9 % (11.8-14.6); RBC DIS.WIDTH-SD 61.8 % (39-53); RED BLOOD COUNT 3.24 M/uL (4.00-5.50); WHITE BLOOD COUNT 10.6 K/uL (4.1-10.2)
[2018-04-13 06:11] LABS: CHLORIDE 102 MEQ/L (99-109); CREATININE 0.6 MG/DL (0.6-1.3); GFR ESTIMATE (CALCULATED) > 59 mL/min/ (58.99-99999); GLUCOSE 117 mg/dL (70-99); POTASSIUM 4.2 MEQ/L (3.7-5.4); SODIUM 137 MEQ/L (136-147); UREA NITROGEN (BUN) 10 mg/dL (9-23)
[2018-04-13 07:43] VITALS: BP 152/74
[2018-04-13 11:24] VITALS: BP 145/72
[2018-04-13 11:58] LABS: HEMATOCRIT 29.5 % (38.0-50.0); HEMOGLOBIN 9.5 G/DL (12.5-16.6); MCV 88.6 FL (86-99)
[2018-04-13 15:59] VITALS: BP 120/64
[2018-04-13 19:25] VITALS: BP 127/70
[2018-04-13 23:10] VITALS: BP 123/67
[2018-04-14 03:00] VITALS: BP 142/73
[2018-04-14 05:47] LABS: HEMATOCRIT 29.3 % (38.0-50.0); MCH 27.7 PG (29.0-34.0); MCHC 30.7 G/DL (30.0-36.0); MCV 90.2 FL (86-99); PLATELET COUNT 440 K/uL (156-360); RBC DIS.WIDTH-CV 18.8 % (11.8-14.6); RED BLOOD COUNT 3.25 M/uL (4.00-5.50)
[2018-04-14 06:06] LABS: CHLORIDE 101 MEQ/L (99-109); CREATININE 0.7 MG/DL (0.6-1.3); GFR ESTIMATE (CALCULATED) > 59 mL/min/ (58.99-99999); GLUCOSE 115 mg/dL (70-99); POTASSIUM 4.2 MEQ/L (3.7-5.4); SODIUM 135 MEQ/L (136-147); UREA NITROGEN (BUN) 11 mg/dL (9-23)
[2018-04-14 08:19] VITALS: BP 115/63
[2018-04-14 11:36] VITALS: BP 115/61
[2018-04-14 15:59] VITALS: BP 108/58
[2018-04-14 20:03] VITALS: BP 114/64
[2018-04-15 00:33] VITALS: BP 107/85
[2018-04-15 03:37] VITALS: BP 108/64
[2018-04-15 06:01] LABS: BASOPHIL (%) 0.3 % (0-1); EOSINOPHIL (%) 1.8 % (0-5); EOSINOPHIL COUNT 0.2 K/uL (0-0.3); HEMATOCRIT 27.9 % (38.0-50.0); HEMOGLOBIN 8.9 G/DL (12.5-16.6); IMMATURE GRANULOCYTE (%) 0.7 % (0.0-0.7); LYMPHOCYTE (%) 3.5 % (15-42); LYMPHOCYTE COUNT 0.3 K/uL (1.0-2.8); MCHC 31.9 G/DL (30.0-36.0); MCV 87.7 FL (86-99); MONOCYTE COUNT 1.3 K/uL (0-0.8); NEUTROPHIL (%) 79.7 % (45-76); NEUTROPHIL COUNT 7.3 K/uL (1.8-6.4); PLATELET COUNT 411 K/uL (156-360); RBC DIS.WIDTH-CV 18.8 % (11.8-14.6); RBC DIS.WIDTH-SD 60.8 % (39-53); RED BLOOD COUNT 3.18 M/uL (4.00-5.50); WHITE BLOOD COUNT 9.2 K/uL (4.1-10.2)
[2018-04-15 06:23] LABS: CHLORIDE 101 MEQ/L (99-109); CREATININE 0.6 MG/DL (0.6-1.3); GFR ESTIMATE (CALCULATED) > 59 mL/min/ (58.99-99999); GLUCOSE 105 mg/dL (70-99); POTASSIUM 4.2 MEQ/L (3.7-5.4); SODIUM 134 MEQ/L (136-147); UREA NITROGEN (BUN) 15 mg/dL (9-23)
[2018-04-15 07:24] VITALS: BP 110/63
[2018-04-15 11:15] VITALS: BP 109/62
[2018-04-15 15:34] VITALS: BP 103/57
[2018-04-15 19:45] VITALS: BP 100/59
[2018-04-16 00:36] VITALS: BP 122/68
[2018-04-16 05:49] LABS: HEMATOCRIT 26.6 % (38.0-50.0); HEMOGLOBIN 8.4 G/DL (12.5-16.6); MCH 27.9 PG (29.0-34.0); MCHC 31.6 G/DL (30.0-36.0); MCV 88.4 FL (86-99); PLATELET COUNT 395 K/uL (156-360); RBC DIS.WIDTH-CV 18.8 % (11.8-14.6); RED BLOOD COUNT 3.01 M/uL (4.00-5.50); WHITE BLOOD COUNT 9.9 K/uL (4.1-10.2)
[2018-04-16 06:13] LABS: CHLORIDE 100 MEQ/L (99-109); CREATININE 0.8 MG/DL (0.6-1.3); GFR ESTIMATE (CALCULATED) > 59 mL/min/ (58.99-99999); GLUCOSE 115 mg/dL (70-99); POTASSIUM 4.4 MEQ/L (3.7-5.4); SODIUM 134 MEQ/L (136-147); UREA NITROGEN (BUN) 16 mg/dL (9-23)
[2018-04-16 07:41] VITALS: BP 123/63
[2018-04-16 11:30] VITALS: BP 114/60
[2018-04-16 15:30] VITALS: BP 120/64
[2018-04-16 19:23] VITALS: BP 105/59
[2018-04-16 23:11] VITALS: BP 122/63
[2018-04-17 04:07] VITALS: BP 105/56
[2018-04-17 07:59] VITALS: BP 118/64
[2018-04-17] MEDS ORDERED: CEFTIN500 MG PO (08:07)
[2018-04-17 15:05] VITALS: BP 114/68
[2018-04-17 16:39] LABS: APPEARANCE CLOUDY ((CLEAR)); BILIRUBIN NEGATIVE; BLOOD MODERATE; COLOR YELLOW ((YELLOW)); GLUCOSE (STRIP) NEGATIVE; KETONES 5; LEUKOCYTES NEGATIVE; NITRITE NEGATIVE; PROTEIN (STRIP) 30; SPECIFIC GRAVITY 1.033 (1.000-1.030); UROBILINOGEN 0.2 MG/DL (0.2-1.0)
[2018-04-17 16:43] LABS: BACTERIA RARE /HPF; CALCIUM OXALATE CRYSTALS 4+ /HPF; EPITHELIAL CELLS RARE /HPF; HYALINE CASTS 0-5 /LPF; MUCUS 2+ /LPF; RED BLOOD CELLS TNTC /HPF (0-5)
[2018-04-17 19:37] VITALS: BP 119/64
== END 2018-04-17 22:36 | DRG 377 ==
LOC: EME 12:18 → 4EAST 14:12 → EDOF 14:12 → ENRESERV 14:14 → CANRESERV 14:24 → ENRESERV 14:24 → EDOF 15:41 → ENRESERV 15:42 → 4EAST 15:50 → ENRESERV 15:50 → 5EAST 04-14 22:57
PROVIDERS: Emergency Medicine; Internal Medicine; Physician Assistant; Student in an Organized Health Care Education/Training Program
DX: K92.1 Melena (principal); J18.9 Pneumonia, unspecified organism; J44.0 Chronic obstructive pulmonary disease with (acute) lower respiratory infection; C78.01 Secondary malignant neoplasm of right lung; K56.41 Fecal impaction; K64.8 Other hemorrhoids; R33.9 Retention of urine, unspecified; D49.4 Neoplasm of unspecified behavior of bladder; G89.3 Neoplasm related pain (acute) (chronic); I10 Essential (primary) hypertension; E11.9 Type 2 diabetes mellitus without complications; G47.30 Sleep apnea, unspecified; Z79.01 Long term (current) use of anticoagulants; Z79.84 Long term (current) use of oral hypoglycemic drugs; Z85.21 Personal history of malignant neoplasm of larynx; Z86.711 Personal history of pulmonary embolism; Z86.718 Personal history of other venous thrombosis and embolism; Z87.891 Personal history of nicotine dependence; Z92.21 Personal history of antineoplastic chemotherapy; Z92.3 Personal history of irradiation
CPT/HCPCS: 71045; 74176; 74177; 80048; 81003; 82948; 85014; 85018; 85025; 85027; 85610; 87086; 87493; 92610 GN; 93005; 94640; 94799; 97530 GO; 99281; 99285; J0295; J0456; J0696; J1815; J2405; J3010; J7030; J7050

== ENCOUNTER 2018-04-21 22:35 | Inpatient (IN) | payer OTHER ==
[~2018-04-21] VITALS: Ht 195.6 cm; Wt 86.3 kg
[~2018-04-21 22:35] MED LIST changes: +CEFTIN500 MG PO; +COLACE100 MG PO; +FENTANYL1 EAC4 TD; +MILK OF MAGN PO; +MUCINEX600 MG PO; +OXYGEN MC; +SODIUM CHLORIDE1 G1 PO; +TYLENOL REGULA325 MG PO
[2018-04-21 23:11] LABS: BASOPHIL (%) 0.3 % (0-1); EOSINOPHIL (%) 0.4 % (0-5); EOSINOPHIL COUNT 0.1 K/uL (0-0.3); HEMATOCRIT 27.8 % (38.0-50.0); HEMOGLOBIN 9.3 G/DL (12.5-16.6); IMMATURE GRANULOCYTE (%) 0.8 % (0.0-0.7); LYMPHOCYTE (%) 1.8 % (15-42); LYMPHOCYTE COUNT 0.2 K/uL (1.0-2.8); MCH 28.1 PG (29.0-34.0); MCHC 33.5 G/DL (30.0-36.0); MONOCYTE (%) 6.9 % (3-12); MONOCYTE COUNT 0.9 K/uL (0-0.8); NEUTROPHIL (%) 89.8 % (45-76); NEUTROPHIL COUNT 12.1 K/uL (1.8-6.4); PLATELET COUNT 393 K/uL (156-360); RBC DIS.WIDTH-CV 18.5 % (11.8-14.6); RBC DIS.WIDTH-SD 56.5 % (39-53); RED BLOOD COUNT 3.31 M/uL (4.00-5.50); WHITE BLOOD COUNT 13.4 K/uL (4.1-10.2)
[2018-04-21 23:16] LABS: ALBUMIN 3.3 g/dL (3.2-4.8)
[2018-04-21 23:17] LABS: CHLORIDE 100 mEq/L (99-109); POTASSIUM 4.2 mEq/L (3.7-5.4); SODIUM 132 mEq/L (136-147)
[2018-04-21 23:21] LABS: TOTAL BILIRUBIN 0.4 mg/dL (0.0-1.0)
[2018-04-21 23:22] LABS: ALKALINE PHOSPHATASE 88 IU/L (3-129); GLUCOSE 258 mg/dL (70-99)
[2018-04-21 23:23] LABS: CREATININE 0.8 mg/dL (0.6-1.3); GFR ESTIMATE (CALCULATED) > 59 mL/min/ (58.99-99999)
[2018-04-21 23:24] LABS: AST (GOT) 12 IU/L (2-34); UREA NITROGEN (BUN) 26 mg/dL (9-23)
[2018-04-21 23:26] LABS: ALT (GPT) 21 IU/L (3-49); LIPASE 29 U/L (1.0-51.0)
[2018-04-22] MEDS ORDERED: SENNA-S LAXATI1 EACH PO (03:48)
[2018-04-22 03:50] VITALS: BP 114/50
[2018-04-22 05:17] LABS: BASOPHIL (%) 0.5 % (0-1); BASOPHIL COUNT 0.1 K/uL (0-0.1); EOSINOPHIL (%) 1.6 % (0-5); EOSINOPHIL COUNT 0.2 K/uL (0-0.3); HEMATOCRIT 26.7 % (38.0-50.0); HEMOGLOBIN 8.4 G/DL (12.5-16.6); IMMATURE GRANULOCYTE (%) 0.7 % (0.0-0.7); LYMPHOCYTE (%) 2.6 % (15-42); LYMPHOCYTE COUNT 0.3 K/uL (1.0-2.8); MCH 27.5 PG (29.0-34.0); MCHC 31.5 G/DL (30.0-36.0); MCV 87.3 FL (86-99); MONOCYTE (%) 12.5 % (3-12); MONOCYTE COUNT 1.2 K/uL (0-0.8); NEUTROPHIL (%) 82.1 % (45-76); NEUTROPHIL COUNT 8.1 K/uL (1.8-6.4); PLATELET COUNT 353 K/uL (156-360); RBC DIS.WIDTH-CV 18.7 % (11.8-14.6); RBC DIS.WIDTH-SD 59.7 % (39-53); RED BLOOD COUNT 3.06 M/uL (4.00-5.50); WHITE BLOOD COUNT 9.8 K/uL (4.1-10.2)
[2018-04-22 06:09] LABS: CHLORIDE 105 MEQ/L (99-109); CREATININE 0.6 MG/DL (0.6-1.3); GFR ESTIMATE (CALCULATED) > 59 mL/min/ (58.99-99999); POTASSIUM 4.5 MEQ/L (3.7-5.4); SODIUM 136 MEQ/L (136-147); UREA NITROGEN (BUN) 18 mg/dL (9-23)
[2018-04-22 06:12] LABS: GLUCOSE 94 mg/dL (70-99)
[2018-04-22 07:11] VITALS: BP 116/62
[2018-04-22 12:00] VITALS: BP 126/82
[2018-04-22 15:42] VITALS: BP 123/64
[2018-04-22 19:30] VITALS: BP 110/72
[2018-04-22 23:00] VITALS: BP 120/63
[2018-04-23 04:00] VITALS: BP 113/57
[2018-04-23 05:35] LABS: BASOPHIL (%) 0.4 % (0-1); EOSINOPHIL COUNT 0.2 K/uL (0-0.3); HEMATOCRIT 25.1 % (38.0-50.0); HEMOGLOBIN 7.9 G/DL (12.5-16.6); IMMATURE GRANULOCYTE (%) 1.2 % (0.0-0.7); LYMPHOCYTE (%) 3.1 % (15-42); LYMPHOCYTE COUNT 0.2 K/uL (1.0-2.8); MCH 27.1 PG (29.0-34.0); MCHC 31.5 G/DL (30.0-36.0); MCV 86.3 FL (86-99); MONOCYTE (%) 12.5 % (3-12); MONOCYTE COUNT 0.9 K/uL (0-0.8); NEUTROPHIL (%) 80.8 % (45-76); PLATELET COUNT 328 K/uL (156-360); RBC DIS.WIDTH-CV 18.6 % (11.8-14.6); RED BLOOD COUNT 2.91 M/uL (4.00-5.50); WHITE BLOOD COUNT 7.4 K/uL (4.1-10.2)
[2018-04-23 05:53] LABS: CHLORIDE 104 MEQ/L (99-109); CREATININE 0.6 MG/DL (0.6-1.3); GFR ESTIMATE (CALCULATED) > 59 mL/min/ (58.99-99999); GLUCOSE 105 mg/dL (70-99); POTASSIUM 4.1 MEQ/L (3.7-5.4); SODIUM 135 MEQ/L (136-147); UREA NITROGEN (BUN) 12 mg/dL (9-23)
[2018-04-23 07:18] VITALS: BP 113/68
[2018-04-23 11:33] VITALS: BP 114/59
[2018-04-23] MEDS ORDERED: LEVAQUIN750 MG PO (15:48)
== END 2018-04-23 19:23 | disposition home health service (06) | DRG 871 ==
LOC: EME → EDBD 22:35 → EME 22:35 → EDOF 04-22 02:17 → 4EAST 04-22 02:17 → ENRESERV 04-22 02:18 → 4EAST 04-22 03:08 → ENPENDDIS 04-23 → 4EAST 04-23 19:23
PROVIDERS: Emergency Medicine; Hospitalist; Student in an Organized Health Care Education/Training Program
DX: A41.9 Sepsis, unspecified organism (principal); R65.20 Severe sepsis without septic shock; J44.0 Chronic obstructive pulmonary disease with (acute) lower respiratory infection; J18.9 Pneumonia, unspecified organism; I10 Essential (primary) hypertension; K21.9 Gastro-esophageal reflux disease without esophagitis; Z86.711 Personal history of pulmonary embolism; Z79.01 Long term (current) use of anticoagulants; C34.91 Malignant neoplasm of unspecified part of right bronchus or lung; E87.1 Hypo-osmolality and hyponatremia; G47.33 Obstructive sleep apnea (adult) (pediatric); D64.9 Anemia, unspecified; N02.9 Recurrent and persistent hematuria with unspecified morphologic changes; E11.9 Type 2 diabetes mellitus without complications; F17.200 Nicotine dependence, unspecified, uncomplicated; K59.00 Constipation, unspecified; R33.9 Retention of urine, unspecified; Z85.21 Personal history of malignant neoplasm of larynx
CPT/HCPCS: 71046; 80048; 80053; 80202; 81003; 82948; 83605; 83690; 85025; 85025 91; 87040; 87070; 87086; 87205; 87449; 93005; 94640; 94799; 99281; 99284; J1815; J2543; J3370; J7030; J7040; J7050

== ENCOUNTER 2018-04-26 15:39 | Inpatient (IN) | payer OTHER ==
[~2018-04-26] VITALS: Ht 195.6 cm; Wt 81.8 kg
[~2018-04-26 15:39] MED LIST changes: +SENNA-S LAXATI1 EACH PO
[2018-04-26 16:46] LABS: BASOPHIL (%) 0.4 % (0-1); EOSINOPHIL (%) 1.8 % (0-5); EOSINOPHIL COUNT 0.2 K/uL (0-0.3); HEMATOCRIT 26.5 % (38.0-50.0); HEMOGLOBIN 8.3 G/DL (12.5-16.6); IMMATURE GRANULOCYTE (%) 0.8 % (0.0-0.7); LYMPHOCYTE (%) 2.7 % (15-42); LYMPHOCYTE COUNT 0.3 K/uL (1.0-2.8); MCH 27.1 PG (29.0-34.0); MCHC 31.3 G/DL (30.0-36.0); MCV 86.6 FL (86-99); MONOCYTE (%) 11.5 % (3-12); MONOCYTE COUNT 1.1 K/uL (0-0.8); NEUTROPHIL (%) 82.8 % (45-76); NEUTROPHIL COUNT 7.9 K/uL (1.8-6.4); PLATELET COUNT 347 K/uL (156-360); RBC DIS.WIDTH-CV 18.6 % (11.8-14.6); RBC DIS.WIDTH-SD 58.8 % (39-53); RED BLOOD COUNT 3.06 M/uL (4.00-5.50); WHITE BLOOD COUNT 9.6 K/uL (4.1-10.2)
[2018-04-26 16:59] LABS: ALBUMIN 3.1 g/dL (3.2-4.8); CHLORIDE 99 mEq/L (99-109); POTASSIUM 4.1 mEq/L (3.7-5.4); SODIUM 133 mEq/L (136-147)
[2018-04-26 17:01] LABS: GLUCOSE 147 mg/dL (70-99); INTER. NORMALIZED RATIO 1.8; TOTAL PROTEIN 5.8 g/dL (6.4-8.3)
[2018-04-26 17:03] LABS: TOTAL BILIRUBIN 0.4 mg/dL (0.0-1.0)
[2018-04-26 17:05] LABS: ALKALINE PHOSPHATASE 93 IU/L (3-129); CREATININE 0.7 mg/dL (0.6-1.3); GFR ESTIMATE (CALCULATED) > 59 mL/min/ (58.99-99999)
[2018-04-26 17:06] LABS: AST (GOT) 15 IU/L (2-34); UREA NITROGEN (BUN) 14 mg/dL (9-23)
[2018-04-26 17:07] LABS: DIRECT BILIRUBIN 0.1 mg/dL (0.0-0.3)
[2018-04-26 17:08] LABS: ALT (GPT) 24 IU/L (3-49); LIPASE 18 U/L (1.0-51.0)
[2018-04-26 17:35] LABS: APPEARANCE CLEAR ((CLEAR)); BILIRUBIN NEGATIVE; BLOOD MODERATE; COLOR YELLOW ((YELLOW)); GLUCOSE (STRIP) NEGATIVE; KETONES 5; LEUKOCYTES NEGATIVE; NITRITE NEGATIVE; PROTEIN (STRIP) 30; SPECIFIC GRAVITY 1.021 (1.000-1.030)
[2018-04-26 17:52] LABS: BACTERIA NONE SEEN /HPF; EPITHELIAL CELLS NONE SEEN /HPF; HYALINE CASTS 0-5 /LPF; MUCUS 1+ /LPF; RED BLOOD CELLS TNTC /HPF (0-5); UCUL ADDED? YES
[2018-04-26 19:40] VITALS: BP 1134/66
[2018-04-26 23:08] VITALS: BP 115/56
[2018-04-27 06:08] LABS: HEMATOCRIT 23.4 % (38.0-50.0); HEMOGLOBIN 7.4 G/DL (12.5-16.6); MCH 27.3 PG (29.0-34.0); MCHC 31.6 G/DL (30.0-36.0); MCV 86.3 FL (86-99); PLATELET COUNT 315 K/uL (156-360); RBC DIS.WIDTH-CV 18.6 % (11.8-14.6); RBC DIS.WIDTH-SD 58.6 % (39-53); RED BLOOD COUNT 2.71 M/uL (4.00-5.50); WHITE BLOOD COUNT 7.1 K/uL (4.1-10.2)
[2018-04-27 06:38] LABS: CHLORIDE 104 MEQ/L (99-109); CREATININE 0.6 MG/DL (0.6-1.3); GFR ESTIMATE (CALCULATED) > 59 mL/min/ (58.99-99999); SODIUM 136 MEQ/L (136-147); UREA NITROGEN (BUN) 10 mg/dL (9-23)
[2018-04-27 06:39] LABS: GLUCOSE 100 mg/dL (70-99)
[2018-04-27 07:20] VITALS: BP 118/58
[2018-04-27 11:25] VITALS: BP 119/58
[2018-04-27 15:55] VITALS: BP 109/57
[2018-04-27 19:45] VITALS: BP 105/60
[2018-04-28 00:39] VITALS: BP 126/61
[2018-04-28 04:58] VITALS: BP 119/64
[2018-04-28 07:20] VITALS: BP 129/60
[2018-04-28 08:32] LABS: HEMATOCRIT 28.3 % (38.0-50.0); HEMOGLOBIN 8.8 G/DL (12.5-16.6); MCH 26.9 PG (29.0-34.0); MCHC 31.1 G/DL (30.0-36.0); MCV 86.5 FL (86-99); PLATELET COUNT 331 K/uL (156-360); RBC DIS.WIDTH-CV 18.6 % (11.8-14.6); WHITE BLOOD COUNT 10.7 K/uL (4.1-10.2)
[2018-04-28 08:40] LABS: RED BLOOD COUNT 3.27 M/uL (4.00-5.50)
[2018-04-28 12:04] VITALS: BP 132/62
[2018-04-28 16:11] VITALS: BP 131/61
[2018-04-28 20:29] VITALS: BP 136/63
[2018-04-29 00:25] VITALS: BP 132/68
[2018-04-29 03:56] VITALS: BP 130/59
[2018-04-29 06:54] LABS: BASOPHIL (%) 0.4 % (0-1); EOSINOPHIL (%) 1.7 % (0-5); EOSINOPHIL COUNT 0.1 K/uL (0-0.3); HEMATOCRIT 23.6 % (38.0-50.0); HEMOGLOBIN 7.5 G/DL (12.5-16.6); IMMATURE GRANULOCYTE (%) 0.7 % (0.0-0.7); LYMPHOCYTE (%) 3.2 % (15-42); LYMPHOCYTE COUNT 0.3 K/uL (1.0-2.8); MCH 27.1 PG (29.0-34.0); MCHC 31.8 G/DL (30.0-36.0); MCV 85.2 FL (86-99); MONOCYTE (%) 11.8 % (3-12); NEUTROPHIL (%) 82.2 % (45-76); NEUTROPHIL COUNT 6.8 K/uL (1.8-6.4); PLATELET COUNT 339 K/uL (156-360); RBC DIS.WIDTH-CV 18.4 % (11.8-14.6); RBC DIS.WIDTH-SD 57.9 % (39-53); RED BLOOD COUNT 2.77 M/uL (4.00-5.50); WHITE BLOOD COUNT 8.2 K/uL (4.1-10.2)
[2018-04-29 07:21] LABS: CHLORIDE 103 MEQ/L (99-109); CREATININE 0.6 MG/DL (0.6-1.3); GFR ESTIMATE (CALCULATED) > 59 mL/min/ (58.99-99999); GLUCOSE 97 mg/dL (70-99); POTASSIUM 4.3 MEQ/L (3.7-5.4); SODIUM 136 MEQ/L (136-147); UREA NITROGEN (BUN) 9 mg/dL (9-23)
[2018-04-29 07:50] VITALS: BP 130/70
[2018-04-29 11:33] VITALS: BP 122/69
[2018-04-29 16:46] VITALS: BP 92/52
[2018-04-29 19:26] LABS: TROP-I INTERPRETATION NEGATIVE; TROPONIN-I 0.08 ng/mL (0.0-0.30)
[2018-04-29 21:58] VITALS: BP 122/70
[2018-04-30 00:32] VITALS: BP 134/71
[2018-04-30 04:28] VITALS: BP 147/68
[2018-04-30 06:15] LABS: BASOPHIL (%) 0.3 % (0-1); EOSINOPHIL (%) 2.2 % (0-5); EOSINOPHIL COUNT 0.2 K/uL (0-0.3); HEMATOCRIT 25.1 % (38.0-50.0); IMMATURE GRANULOCYTE (%) 0.6 % (0.0-0.7); LYMPHOCYTE COUNT 0.3 K/uL (1.0-2.8); MCH 27.2 PG (29.0-34.0); MCHC 31.9 G/DL (30.0-36.0); MCV 85.4 FL (86-99); MONOCYTE (%) 11.8 % (3-12); NEUTROPHIL (%) 82.1 % (45-76); NEUTROPHIL COUNT 7.2 K/uL (1.8-6.4); PLATELET COUNT 338 K/uL (156-360); RBC DIS.WIDTH-CV 18.4 % (11.8-14.6); RBC DIS.WIDTH-SD 57.4 % (39-53); RED BLOOD COUNT 2.94 M/uL (4.00-5.50); WHITE BLOOD COUNT 8.8 K/uL (4.1-10.2)
[2018-04-30 06:41] LABS: CHLORIDE 103 MEQ/L (99-109); CREATININE 0.5 MG/DL (0.6-1.3); GFR ESTIMATE (CALCULATED) > 59 mL/min/ (58.99-99999); GLUCOSE 103 mg/dL (70-99); POTASSIUM 4.4 MEQ/L (3.7-5.4); SODIUM 135 MEQ/L (136-147); UREA NITROGEN (BUN) 9 mg/dL (9-23)
[2018-04-30 07:29] VITALS: BP 133/66
[2018-04-30 09:30] LABS: TROP-I INTERPRETATION NEGATIVE; TROPONIN-I < 0.01 ng/mL (0.0-0.30)
[2018-04-30 15:30] VITALS: BP 109/55
[2018-05-01 07:00] VITALS: BP 145/69
[2018-05-01 15:30] VITALS: BP 110/58
[2018-05-01 22:39] VITALS: BP 134/66
[2018-05-02 07:46] VITALS: BP 126/68
[2018-05-02 09:39] LABS: BASOPHIL (%) 0.2 % (0-1); EOSINOPHIL (%) 1.2 % (0-5); EOSINOPHIL COUNT 0.1 K/uL (0-0.3); HEMATOCRIT 26.7 % (38.0-50.0); HEMOGLOBIN 8.5 G/DL (12.5-16.6); IMMATURE GRANULOCYTE (%) 0.5 % (0.0-0.7); LYMPHOCYTE (%) 3.1 % (15-42); LYMPHOCYTE COUNT 0.3 K/uL (1.0-2.8); MCH 26.6 PG (29.0-34.0); MCHC 31.8 G/DL (30.0-36.0); MCV 83.7 FL (86-99); MONOCYTE (%) 10.3 % (3-12); MONOCYTE COUNT 0.9 K/uL (0-0.8); NEUTROPHIL (%) 84.7 % (45-76); NEUTROPHIL COUNT 7.4 K/uL (1.8-6.4); PLATELET COUNT 415 K/uL (156-360); RBC DIS.WIDTH-CV 18.2 % (11.8-14.6); RBC DIS.WIDTH-SD 55.6 % (39-53); RED BLOOD COUNT 3.19 M/uL (4.00-5.50); WHITE BLOOD COUNT 8.7 K/uL (4.1-10.2)
[2018-05-02 10:15] LABS: ALBUMIN 2.7 G/DL (3.2-4.8); ALKALINE PHOSPHATASE 80 IU/L (3-129); ALT (GPT) 12 IU/L (3-49); AST (GOT) 10 IU/L (2-34); CHLORIDE 101 MEQ/L (99-109); CREATININE 0.6 MG/DL (0.6-1.3); GFR ESTIMATE (CALCULATED) > 59 mL/min/ (58.99-99999); GLUCOSE 123 mg/dL (70-99); POTASSIUM 3.9 MEQ/L (3.7-5.4); SODIUM 135 MEQ/L (136-147); TOTAL BILIRUBIN 0.3 MG/DL (0.0-1.0); TOTAL PROTEIN 4.7 G/DL (6.4-8.3); UREA NITROGEN (BUN) 11 mg/dL (9-23)
[2018-05-02 16:40] VITALS: BP 109/67
[2018-05-02 23:25] VITALS: BP 119/66
[2018-05-03 07:40] VITALS: BP 130/73
[2018-05-03] MEDS ORDERED: LEVAQUIN750 MG PO (11:45)
== END 2018-05-03 14:55 | disposition home health service (06) | DRG 871 ==
LOC: EME 15:39 → 5EAST 18:29 → EDOF 18:29 → ENRESERV 18:38 → 5EAST 19:32
PROVIDERS: Emergency Medicine; Internal Medicine; Physician Assistant; Student in an Organized Health Care Education/Training Program
DX: A41.9 Sepsis, unspecified organism (principal); J69.0 Pneumonitis due to inhalation of food and vomit; R65.20 Severe sepsis without septic shock; E87.2 Acidosis; N12 Tubulo-interstitial nephritis, not specified as acute or chronic; C32.1 Malignant neoplasm of supraglottis; R09.02 Hypoxemia; D63.8 Anemia in other chronic diseases classified elsewhere; I11.9 Hypertensive heart disease without heart failure; K21.9 Gastro-esophageal reflux disease without esophagitis; C34.91 Malignant neoplasm of unspecified part of right bronchus or lung; Z86.711 Personal history of pulmonary embolism; E86.0 Dehydration; Z80.8 Family history of malignant neoplasm of other organs or systems; Z80.0 Family history of malignant neoplasm of digestive organs; K59.09 Other constipation; E87.1 Hypo-osmolality and hyponatremia; Z92.21 Personal history of antineoplastic chemotherapy; G47.30 Sleep apnea, unspecified; Z79.01 Long term (current) use of anticoagulants; Z92.3 Personal history of irradiation; Y95 Nosocomial condition; E11.9 Type 2 diabetes mellitus without complications; G89.3 Neoplasm related pain (acute) (chronic); J44.1 Chronic obstructive pulmonary disease with (acute) exacerbation; R62.7 Adult failure to thrive; Z87.440 Personal history of urinary (tract) infections
CPT/HCPCS: 71045; 71046; 74176; 80048; 80053; 80076; 80202; 81003; 82948; 83605; 83690; 84484; 85025; 85027; 85610; 85730; 86850; 86900; 86901; 87040; 87070; 87086; 87205; 93005; 94640; 94799; 97530 GO; 97530 GP; 99281; 99285; J1815; J2405; J2543; J3370; J7030; J7050; J7512